=== PATIENT | male | born 1940 ===

== ENCOUNTER 2016-10-04 20:15 | Emergency (ER) | payer MEDICARE, OTHER ==
[2016-10-04 20:16] VITALS: BMI 23.7
[2016-10-04 20:34] VITALS: BP 150/78; PULSE 78; RESP 18; TEMP 98.5; O2SAT 100
--- NOTE | 2016-10-04 21:11 | ED PDOC ---
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 Patient fell 2 weeks ago and injured left shoulder and has been having only mild pain over the past few days. Today, he was out with his friend and felt worsening pain to shoulder. He presents to ED unable to move left shoulder without severe discomfort. Patient did not take any meds for pain relief. He denies any associated chest pain, SOB or VICENTE. Patient denies any numbness or tingling to left arm. No associated headache, neck pain or dizziness. Past Medical History Reviewed: Historical Data, Nursing Documentation, Vital Signs Vital Signs: Last Vital Signs Temp 98.5 F 10/04/16 20:26 Pulse 78 10/04/16 20:26 Resp 18 10/04/16 20:26 BP 150/78 10/04/16 20:26 Pulse Ox 100 10/04/16 20:26 - Medical History PMH: HTN - Surgical History Surgical History: No Surg Hx - Family History Family History: States: Hypertension - Living Arrangements Living Arrangements: With Family - Social History Current smoker - smoking cessation education provided: No Alcohol: Social Drugs: Denies - Home Medications Home Medications: Ambulatory Orders Medication Instructions Recorded Naproxen [Naprosyn] 500 mg PO BID #20 tab 10/04/16 traMADol [Ultram] 50 mg PO TID PRN #15 tab 10/04/16 - Allergies Allergies/Adverse Reactions: Allergies Allergy/AdvReac Type Severity Reaction Status Date / Time No Known Allergies Allergy Verified 10/04/16 20:33 Review of Systems ROS Statement: Except As Marked, All Systems Reviewed And Found Negative Cardiovascular: Negative for: Chest Pain Gastrointestinal: Negative for: Nausea, Vomiting Musculoskeletal: Positive for: Shoulder Pain (left, injured shoulder 2 weeks ago , pain worse today). Negative for: Neck Pain Neurological: Negative for: Weakness, Numbness, Incoordination, Change in Speech , Confusion, Seizures, Altered Mental Status, Headache, Dizziness Physical Exam - Reviewed Nursing Documentation Reviewed: Yes Vital Signs Reviewed: Yes - Physical Exam Appears: Positive for: Non-toxic, No Acute Distress Head Exam: Positive for: ATRAUMATIC, NORMOCEPHALIC Skin: Positive for: Normal Color, Warm, Dry Eye Exam: Positive for: Normal appearance, EOMI, PERRL Neck: Positive for: Normal, Painless ROM, Supple. Negative for: Pain On Movement Of Neck Cardiovascular/Chest: Positive for: Regular Rate, Rhythm. Negative for: Murmur Respiratory: Positive for: Normal Breath Sounds. Negative for: Respiratory Distress Extremity: Positive for: Normal ROM (Full ROM left elbow and wrist; marked decreased ROM to left shoulder ), Tenderness (Diffuse tenderness to left shoulder region with no palpable bony deformity) Neurologic/Psych: Positive for: Alert, Oriented. Negative for: Motor/Sensory Deficits - ECG Interpretation Of ECG: NSR 80 bpm, RBBB, reviewed by PA and ED attending O2 Sat by Pulse Oximetry: 100 Pulse Ox Interpretation: Normal - Other Rad Left shoulder and humerus x-ray X-Ray: Interpreted by Me, Viewed By Me X-Ray Interpretation: no fx, no dis, arthritic changes, ? calcification humeral head Medical Decision Making Medical Decision Makin:05 Initial Impression- Shoulder pain; r/o fracture Initial Plan- * XR Left Shoulder * XR Left Humerus * EKG * Tylenol 975 mg PO * Ibuprofen 600 mg PO * Tramadol 50 mg PO * Re-evaluate Patient is aware of x-ray results, all questions answered. He feels much better after meds given. Sling applied to left arm. Rx tramadol and naprosyn given. Patient was referred to ortho [employer]. Documented by Aria Beltrán, acting as a scribe for Indigo Lockett PA-C All medical record entries made by the Scribe were at my direction and personally dictated by me. I have reviewed the chart and agree that the record accurately reflects my personal performance of the history, physical exam, medical decision making, and the department course for this patient. I have also personally directed, reviewed, and agree with the discharge instructions and disposition. Disposition - Clinical Impression Clinical Impression: Arthritis of shoulder, Calcific tendonitis - Patient ED Disposition Is Patient to be Admitted: No Counseled Patient/Family Regarding: Studies Performed, Diagnosis, Need For Followup, Rx Given - Disposition Referrals: Bernardo Jacobs MD [Medical Doctor] - Disposition: Routine/Home Disposition Time: 22:22 Condition: STABLE Additional Instructions: Ice and rest the affected area. Take prescription meds as directed as needed for pain. Follow-up with primary doctor or orthopedist in 2-3 days. Return any time to ED if acutely worse. Prescriptions: Naproxen [Naprosyn] 500 mg PO BID #20 tab traMADol [Ultram] 50 mg PO TID PRN #15 tab PRN Reason: Pain, Moderate (4-7) Instructions: Shoulder Sprain (ED), Calcific Tendinitis (ED), Arthralgia (ED) Print Language: MARSHALLESE
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
== END 2016-10-04 22:30 | disposition home or self-care (01) ==
LOC: H.ER 20:15
DX: M75.30 Calcific tendinitis of unspecified shoulder (principal); M19.012 Primary osteoarthritis, left shoulder; I10 Essential (primary) hypertension

== ENCOUNTER 2018-05-26 16:46 | Emergency (ER) | payer OTHER ==
[2018-05-26 16:47] VITALS: BMI 23.7
[2018-05-26 16:52] VITALS: O2SAT 99
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
[2018-05-26 20:06] VITALS: BP 148/88; PULSE 70; RESP 16; TEMP 98
== END 2018-05-26 20:04 | disposition home or self-care (01) ==
LOC: H.ER 16:46
DX: Z04.1 Encounter for examination and observation following transport accident (principal); V43.54XA Car driver injured in collision with van in traffic accident, initial encounter; Y92.410 Unspecified street and highway as the place of occurrence of the external cause
CPT/HCPCS: 70450; 72125; 72131; 96372; 99283; J1885